=== PATIENT | female | born 2005 | race Caucasian/White ===

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

== ENCOUNTER 2023-05-20 20:23 | Emergency (ER) | payer MEDICAID ==
[~2023-05-20 20:23] MED LIST changes: +DOCU100C37 PO; +FERR325T24 PO; +FLUO60TA PO; +IBUP-844 PO
--- NOTE | 2023-05-20 20:40 | ED General ---
General Stated Complaint: VAGINAL BLEEDING Source of Information: Patient Exam Limitations: No Limitations History of Present Illness Date Seen by Provider: May 20, 2023 Time Seen by Provider: 20:40 Initial Comments Patient is a 17yo female who brought her 5m old in for covid concerns and she herself "wanted to get checked" because she continues to have irregular bleeding post delivery. She did call [facility] and has a scheduled appt for July to be placed on control to "regulate her periods". She states she is not sexually active because her child's father is currently in senior care. She states she was seen about a week or so ago at [facility] and diagnosed with "PID" - they did a pelvic exam and gave her 10 days of antibiotics which she claims she took the entire course. SHe denies dysuria, states that her vaginal discharge "looks bloody". Occasionally has vaginal itching. No feverr, n/v/d, although sometimes she has diarrhea - but this is common. Occasional abdominal cramping. Desires a prescription for control. Timing/Duration: Other (months) Severity: Mild Associated Systoms: Denies Symptoms Allergies and Home Medications Allergies Coded Allergies: No Known Drug Allergies (Unverified , 12/02/10) Patient Home Medication List Home Medication List Reviewed: Yes Docusate Sodium (Docusate Sodium) 100 Mg Capsule, 100 MG PO BID PRN for CONSTIPATION Prescribed by: ELODIA PLUNKETT on 12/04/22 145 Ferrous Sulfate (Ferosul) 325 Mg (65 Mg Iron) Tablet, 325 MG PO DAILY@0700 Prescribed by: ELODIA PLUNKETT on 12/04/22 145 Fluoxetine HCl (Fluoxetine HCl) 60 Mg Tablet, 60 MG PO DAILY Prescribed by: ELODIA PLUNKETT on 12/05/22 1200 Ibuprofen (Ibu) 600 Mg Tablet, 600 MG PO Q6H PRN for PAIN-MODERATE (5-7) Prescribed by: ELODIA PLUNKETT on 12/04/22 1456 Review of Systems Review of Systems Constitutional: see HPI EENTM: no symptoms reported Respiratory: no symptoms reported Cardiovascular: no symptoms reported Gastrointestinal: abdominal pain Genitourinary: discharge ("bloody") Musculoskeletal: no symptoms reported Skin: no symptoms reported Psychiatric/Neurological: No Symptoms Reported All Other Systems Reviewed Negative Unless Noted: Yes Past Ffudkzg-Vsojde-Kvjdyy Hx Past Medical History Surgeries: No Respiratory: No Cardiac: No Neurological: No Reproductive Disorders: No Genitourinary: No Gastrointestinal: No Musculoskeletal: No Endocrine: No HEENT: No Cancer: No Psychosocial: Yes ADD/ADHD, Anxiety, Depression Integumentary: No Blood Disorders: No Physical Exam Vital Signs Vital Signs - First Documented 05/20/23 20:23 Temp 37.0 Pulse 119 Resp 18 B/P (MAP) 127/78 (94) Pulse Ox 97 O2 Delivery Room Air Capillary Refill : Height, Weight, BMI Height: '" Weight: 55lbs. oz. 24.345784jw; 27.66 BMI Method:Stated General Appearance: No Apparent Distress, WD/WN Eyes: Bilateral Eye Normal Inspection, Bilateral Eye PERRL, Bilateral Eye EOMI Respiratory: Lungs Clear, Normal Breath Sounds, No Accessory Muscle Use, No Respiratory Distress Cardiovascular: Regular Rate, Rhythm Extremity: Normal Capillary Refill, Normal Inspection, Normal Range of Motion, No Pedal Edema Neurologic/Psychiatric: Alert, Oriented x3, No Motor/Sensory Deficits, Normal Mood/Affect, paid search manager II-XII Norm as Tested Skin: Normal Color, Warm/Dry Procedures/Interventions Suture Size: 4-0 Progress/Results/Core Measures Suspected Sepsis SIRS Temperature: Pulse: Respiratory Rate: Blood Pressure / Mean: Results/Orders My Orders Vital Signs/I&O 05/20/23 20:23 Temp 37.0 Pulse 119 Resp 18 B/P (MAP) 127/78 (94) Pulse Ox 97 O2 Delivery Room Air Capillary Refill : Progress Note : Time: 21:15 Progress Note Patient seen and evaluated by me. Eval today includes physical exam, UA and urine test. Patient's physical exam is generally unremarkable - no point tenderness to the abdomen. BS present. Lungs clear. Heart regular. Conjunctivae pink. DDX based on H&P includes UTI, . Labs independently reviewed and interpreted by me. Her UA - Discussed with patient that her VS are stable, she is not anemic and with her normal labs and recent treatment for PID, she is safe to follow up with [facility] for eval and placement on control. Explained that the emergency Department is not able to provide control nor monitor/change meds if needed. Advised Over the counter naproxen/ Alleve for her cramping pain. REturn precautions provided in both verbal and written format. Departure Impression Primary Impression: Vaginal spotting Disposition: HOME, SELF-CARE Condition: Stable Departure-Patient Inst. Decision time for Depature: 22:37 Referrals: [facility] (PCP/Family) Primary Care Physician Patient Instructions: Bleeding Add. Discharge Instructions: Take over the counter Ibuprofen 3 pills (600mg) every 6 hours for abdominal cramping. Always take Ibuprofen with food. OR You can take generic Aleve (naproxen) 2 pills TWICE a day with food for the cramping. (This will also help slow down your vaginal bleeding). Since your baby has tested positive for COVID, you both will need to stay home for 5 days, and mask in public for the following 5 days. Please come back to the ER if you have any worsening symptoms or new, emergent concerns. Drink plenty of fluids to stay well hydrated. Keep your appointment with [facility] in July to be placed on control. Copy Copies To 1: [facility]/MORGAN WALKER MD May 20, 2023 20:40
[2023-05-20 22:46] VITALS: BP 127/78
== END 2023-05-20 22:46 | disposition home or self-care (01) ==
LOC: EDUNIT# 20:23 → ER 20:24
DX: N93.8 Other specified abnormal uterine and vaginal bleeding (principal)
CPT/HCPCS: 99281